=== PATIENT | male | born 1995 | race Caucasian/White ===

== ENCOUNTER 2016-11-02 10:20 | Emergency (ER) | payer SELFPAY ==
[2016-11-02 10:33] VITALS: BP 133/72
--- NOTE | 2016-11-02 10:48 | UC ---
Back Pain HPI - HPI Summary HPI Summary: Patient injured his back on 10/31/16. He is here for follow up. states he is feeling better, but twisting and bending still causes pain. - History of Current Complaint Chief Complaint: UCBackPain Stated Complaint: FOLLOW UP BACK INJURY Time Seen by Provider: 11/02/16 10:28 Hx Obtained From: Patient Onset/Duration: Sudden Onset, Lasting Days Timing: Constant Severity Initially: Severe Severity Currently: Moderate Back Pain: Is Diffuse, Radiates To - legs Character: Spasmodic Aggravating: Movement Alleviating: Rest Related History: Occupational Injury - Allergies/Home Medications Allergies/Adverse Reactions: Allergies Allergy/AdvReac Type Severity Reaction Status Date / Time Cefaclor [From [facility]] Allergy Intermediate Hives Verified 11/02/16 10:33 PMH/Surg Hx/FS Hx/Imm Hx Previously Healthy: Yes Other History Of: Negative For: Anticoagulant Therapy - Surgical History Surgical History: Yes Surgery Procedure, Year, and Place: hernia repair as a baby - Family History Known Family History: Positive: Respiratory Disease - Social History Alcohol Use: None Substance Use Type: None Smoking Status (MU): Current Every Day Smoker Type: Smokeless Tobacco Amount Used/How Often: 1/2 can per day Length of Time of Smoking/Using Tobacco: started at age 16 Have You Smoked in the Last Year: Yes Review of Systems Skin: Negative Eyes: Negative ENT: Negative Respiratory: Negative Cardiovascular: Negative Gastrointestinal: Negative Genitourinary: Negative Motor: Negative Neurovascular: Negative Musculoskeletal: Arthralgia, Decreased ROM, Myalgia Neurological: Negative Psychological: Negative All Other Systems Reviewed And Are Negative: Yes Physical Exam Triage Information Reviewed: Yes Appearance: Well-Appearing, Well-Nourished, Pain Distress Vital Signs: Initial Vital Signs Temp 97.9 F 11/02/16 10:22 Pulse 62 11/02/16 10:22 Resp 14 11/02/16 10:22 BP 133/72 11/02/16 10:22 Pulse Ox 99 11/02/16 10:22 Vital Signs Reviewed: Yes Eye Exam: Normal ENT: Positive: Hearing grossly normal, Pharynx normal Dental Exam: Normal Neck exam: Normal Neck: Positive: Supple, Nontender, No Lymphadenopathy Respiratory Exam: Normal Respiratory: Positive: Chest non-tender, Lungs clear, Normal breath sounds Cardiovascular Exam: Normal Cardiovascular: Positive: RRR, No Murmur, Pulses Normal Abdominal Exam: Normal Abdomen Description: Positive: Nontender, No Organomegaly, Soft Bowel Sounds: Positive: Present Musculoskeletal Exam: Normal Musculoskeletal: Positive: No Edema, Strength Limited @, ROM Limited @ - in FLX , EXT and rotation of the spine Neurological Exam: Normal Neurological: Positive: Alert, Muscle Tone Normal Psychological Exam: Normal Skin Exam: Normal Back Pain Course/Dx - Course Course Of Treatment: hx obtained, exam performed, meds reviewed, ROM assessed, PT referral given, work restrictions applied, will need to follow up for full clearance. - Differential Dx/Diagnosis Differential Diagnosis/HQI/PQRI: Fracture, Herniated Disc, Strain, Sprain Provider Diagnoses: DJD. lumbar back pain Discharge - Discharge Plan Condition: Stable Disposition: HOME Patient Education Materials: Degenerative Disc Disease (ED) Referrals: No Primary Care Phys,NOPCP [Primary Care Provider] - Additional Instructions: 1. i have given you a referral to PT. 2. You may return to work with restrictions. follow up with PT to regain full function.
== END 2016-11-02 10:54 | disposition home or self-care (01) ==
LOC: UCCORT 10:20
DX: M54.5 Low back pain (principal); M51.36 Other intervertebral disc degeneration, lumbar region; Z88.1 Allergy status to other antibiotic agents; F17.210 Nicotine dependence, cigarettes, uncomplicated
CPT/HCPCS: 99211; G0463

== ENCOUNTER 2018-11-28 14:35 | Emergency (ER) | payer SELFPAY ==
[2018-11-28 14:55] VITALS: BP 138/79
--- NOTE | 2018-11-28 15:42 | UC ---
Eye Complaint HPI - HPI Summary HPI Summary: Sudden L eye blurriness assoc. w/ gardner and referred R eye pain. denies any other neuro deficits. +smoker. - History of Current Complaint Chief Complaint: UCDizziness Stated Complaint: LEFT EYE BLURRY, HEADACHE Time Seen by Provider: 11/28/18 15:06 Hx Obtained From: Patient Pain Intensity: 6 - Allergies/Home Medications Allergies/Adverse Reactions: Allergies Allergy/AdvReac Type Severity Reaction Status Date / Time cefaclor [From [facility]] Allergy Intermediate Hives Verified 11/28/18 14:55 PMH/Surg Hx/FS Hx/Imm Hx Previously Healthy: Yes Respiratory History: Asthma Other History Of: Negative For: Anticoagulant Therapy - Surgical History Surgical History: Yes Surgery Procedure, Year, and Place: hernia repair as a baby - Family History Known Family History: Positive: Respiratory Disease - Social History Alcohol Use: None Substance Use Type: None Smoking Status (MU): Light Every Day Tobacco Smoker Type: Cigarettes, Smokeless Tobacco Amount Used/How Often: 1/2 can per day Length of Time of Smoking/Using Tobacco: started at age 16 Have You Smoked in the Last Year: Yes Household Exposure Type: Cigarettes Review of Systems All Other Systems Reviewed And Are Negative: Yes Constitutional: Positive: Negative Eyes: Positive: Blurred Vision - L, Photophobia - L, Other - R eye pain. Pain w / eye movement. denies vision loss. Respiratory: Positive: Negative Cardiovascular: Positive: Negative Neurological: Positive: Headache Physical Exam Triage Information Reviewed: Yes Appearance: Obese Vital Signs: Initial Vital Signs Temp 95.3 F 11/28/18 14:46 Pulse 71 11/28/18 14:46 Resp 17 11/28/18 14:46 BP 138/79 11/28/18 14:46 Pulse Ox 98 11/28/18 14:46 Vital Signs Reviewed: Yes Eyes: Positive: Conjunctiva Clear, Other: - PERRLA, L EOM assoc. w/ pain in L eye but has referred pain to R eye when EOM induced. no eyelid invovlement. sclera white bilat. L eye blurriness , unable to accomodate. Neck: Positive: Supple Respiratory Exam: Normal Cardiovascular Exam: Normal Neurological: Positive: Alert, Other: - current GARDNER w/ worsening pain when L eye is made to focus. OTHERWISE rest of cranial nerves grossly intact. Psychological: Positive: Normal Response To Family Skin: Negative: Rashes Eye Complaint Course/Dx - Course Course Of Treatment: sudden L eye vision impairment notably in the [place] field assoc. w /GARDNER that worsens when he tries to focus L eye. Pain is referred to R eye although no R eye blurriness. No other symptoms. Although this could very well be a retinal detachment there is also concern for a cerebral source or vascular cause. He does have risk factors : obesity, smoker, self reported high blood pressure which is untreated. I recommended ambulance and discussed risks of not going via ambulance like worsening condition. They have chosen to drive, his mother driving. - Differential Dx/Diagnosis Differential Diagnosis/HQI/PQRI: Detached Retina, Uveitis, Other Provider Diagnosis: Vision changes Discharge - Sign-Out/Discharge Documenting (check all that apply): Patient Departure All imaging exams completed and their final reports reviewed: No Studies - Discharge Plan Condition: Good Disposition: HOME Patient Education Materials: Blurred Vision (ED) Referrals: No Primary Care Phys,NOPCP [Primary Care Provider] - Additional Instructions: I strongly recommend you go to the Emergency Room. You have chosen to drive and we discussed risks. - Billing Disposition and Condition Condition: GOOD Disposition: Home
== END 2018-11-28 15:45 | disposition home or self-care (01) ==
LOC: UCEAST 14:35
DX: H53.9 Unspecified visual disturbance (principal); J45.909 Unspecified asthma, uncomplicated; F17.210 Nicotine dependence, cigarettes, uncomplicated
CPT/HCPCS: 99212; G0463

== ENCOUNTER 2018-11-28 15:59 | Emergency (ER) | payer SELFPAY ==
[2018-11-28 16:16] VITALS: BP 165/103
== END 2018-11-28 17:50 | disposition left against medical advice (07) ==
LOC: ED 15:59
DX: H53.8 Other visual disturbances (principal); Z53.21 Procedure and treatment not carried out due to patient leaving prior to being seen by health care provider

== ENCOUNTER 2019-03-28 08:30 | Emergency (ER) | payer SELFPAY ==
[2019-03-28 08:52] VITALS: BP 152/99
--- NOTE | 2019-03-28 09:14 | ED ---
Throat Pain/Nasal Congestion - HPI Summary HPI Summary: 23 yr old male with the complaint of runny nose, sore throat, coughing and right ear pain. Onset of symptoms 4 days ago with ear pain, and about 10 days with the cough and cold symptoms. He denies fever and chills. He has no other complaints. He needs a note for work as well. His only allergy is to cefaclor. He states that he takes amoxicillin with no issues at all. - History of Current Complaint Chief Complaint: UCGeneralIllness Time Seen by Provider: 03/28/19 08:55 - Allergies/Home Medications Allergies/Adverse Reactions: Allergies Allergy/AdvReac Type Severity Reaction Status Date / Time cefaclor [From [facility]] Allergy Intermediate Hives Verified 03/28/19 08:52 PMH/Surg Hx/FS Hx/Imm Hx Endocrine/Hematology History: Denies: Hx Anticoagulant Therapy Respiratory History: Reports: Hx Asthma - Surgical History Surgery Procedure, Year, and Place: hernia repair as a baby Infectious Disease History: No Infectious Disease History: Denies: Traveled Outside the [place] in Last 30 Days - Family History Known Family History: Positive: Respiratory Disease - Social History Alcohol Use: None Substance Use Type: Reports: None Smoking Status (MU): Light Every Day Tobacco Smoker Type: Cigarettes, Smokeless Tobacco Amount Used/How Often: 1/2 can per day Length of Time of Smoking/Using Tobacco: started at age 16 Have You Smoked in the Last Year: Yes Review of Systems Constitutional: Negative Positive: Sore Throat, Ear Ache, Nasal Discharge Positive: Cough All Other Systems Reviewed And Are Negative: Yes Physical Exam Triage Information Reviewed: Yes Vital Signs On Initial Exam: Initial Vitals Temp Pulse Resp BP Pulse Ox 97.3 F 77 20 152/99 96 03/28/19 08:47 03/28/19 08:47 03/28/19 08:47 03/28/19 08:47 03/28/19 08:47 Vital Signs Reviewed: Yes Appearance: Positive: Well-Appearing, No Pain Distress Skin: Positive: Warm, Skin Color Reflects Adequate Perfusion Head/Face: Positive: Normal Head/Face Inspection Eyes: Positive: EOMI ENT: Positive: Nasal congestion, TM red - right with erythema Dental: Positive: Percussion Tenderness @ Neck: Positive: Nontender Respiratory/Lung Sounds: Positive: Clear to Auscultation, Breath Sounds Present Cardiovascular: Positive: RRR. Negative: Murmur Abdomen Description: Negative: Distended Musculoskeletal: Positive: Strength/ROM Intact Neurological: Positive: Sensory/Motor Intact, Alert, Oriented to Person Place, Time, CN Intact II-III, Normal Gait, Speech Normal Psychiatric: Positive: Normal Diagnostics - Vital Signs Vital Signs Temp Pulse Resp BP Pulse Ox 03/28/19 08:47 97.3 F 77 20 152/99 96 - Laboratory Lab Statement: Any lab studies that have been ordered have been reviewed, and results considered in the medical decision making process. EENT Course/Dx - Course Course Of Treatment: 23yr old with right otitis media, and URI symptoms. Amox presribed as he states he has no problem with it in the past. - Diagnoses Provider Diagnoses: Otitis media Discharge ED - Sign-Out/Discharge Documenting (check all that apply): Patient Departure All imaging exams completed and their final reports reviewed: No Studies - Discharge Plan Condition: Good Disposition: HOME Prescriptions: Amoxicillin PO (*) [Amoxicillin 500 MG CAP*] 500 mg PO TID #30 cap Patient Education Materials: Ear Infection (ED), Hypertension (ED) Forms: *Work Release Referrals: No Primary Care Phys,NOPCP [Primary Care Provider] - [facility] [Outside] - 2 Days - Billing Disposition and Condition Condition: GOOD Disposition: Home
== END 2019-03-28 09:15 | disposition home or self-care (01) ==
LOC: UCCORT 08:30
DX: H66.91 Otitis media, unspecified, right ear (principal); J02.9 Acute pharyngitis, unspecified; J45.909 Unspecified asthma, uncomplicated; R05 Cough; J34.89 Other specified disorders of nose and nasal sinuses; F17.210 Nicotine dependence, cigarettes, uncomplicated; Z88.1 Allergy status to other antibiotic agents
CPT/HCPCS: 99212; G0463

== ENCOUNTER 2019-05-16 08:59 | Emergency (ER) | payer SELFPAY ==
[2019-05-16 09:16] VITALS: BP 142/86
--- NOTE | 2019-05-16 09:29 | UC ---
General HPI - HPI Summary HPI Summary: RN notes - Sneezing "I thought it was allergies" and cough last night. Intermittent nausea without vomiting since waking up this morning at 0445. After coughing at about 0730, had ten minute episode of headache associated with left eye "not a total blur out ... kind of blurring", and "felt like my left hand wasn't there" while looking at small parts. While driving here, head "hurt a little" and left arm "weakness. Similar previous episode about a month ago that he went to [place] urgent care, was sent to the ED, and he left without being seen. Asypmtomatic at time of triage. Reviewed parts counter associate. This am approx 7:30 was at work, sudden onset L blurry vision, L frontal parietal h/a, L arm / hand dyskinesia. Occurred s/p sneezing. Sx lasted apprx 10 min, resolved spontaneously. No recent fever / chills. No ear pain. Mild cough, no sob /cp / palpitations. No GI issues. No rash. + hx similar end of the summer (he clarifies, longer than 1 mo ago), sx on and off x approx 1 1/2 days. - History of Current Complaint Chief Complaint: UCHeadache Stated Complaint: VOMITTING,GARDNER,LEFT EYE BLURRY,LEFT ARM NUMB Time Seen by Provider: 05/16/19 09:28 Hx Obtained From: Patient Pain Intensity: 0 - Allergy/Home Medications Allergies/Adverse Reactions: Allergies Allergy/AdvReac Type Severity Reaction Status Date / Time cefaclor [From [facility]] Allergy Intermediate Hives Verified 05/16/19 09:06 PMH/Surg Hx/FS Hx/Imm Hx Previously Healthy: Yes Other History Of: Negative For: Anticoagulant Therapy - Surgical History Surgical History: Yes Surgery Procedure, Year, and Place: hernia repair as a baby - Family History Known Family History: Positive: Respiratory Disease, Other - stroke, dm, ca - Social History Alcohol Use: None Substance Use Type: None Smoking Status (MU): Heavy Every Day Tobacco Smoker Type: Smokeless Tobacco Amount Used/How Often: 1/2 can per day Length of Time of Smoking/Using Tobacco: Since Age 16 Have You Smoked in the Last Year: Yes Household Exposure Type: Cigarettes Review of Systems All Other Systems Reviewed And Are Negative: Yes Constitutional: Positive: Negative - see hpi Skin: Positive: Negative Eyes: Positive: Other - see hpi ENT: Positive: Other - see hpi Respiratory: Positive: Other - see hpi Cardiovascular: Positive: Negative Gastrointestinal: Positive: Negative Genitourinary: Positive: Negative Motor: Positive: Other - see hpi Neurovascular: Positive: Other - see hpi Musculoskeletal: Positive: Other: - see hpi Neurological: Positive: Other - see hpi Psychological: Positive: Negative Is Patient Immunocompromised?: No Physical Exam Triage Information Reviewed: Yes Appearance: Well-Appearing, Well-Nourished Vital Signs: Initial Vital Signs Temp 97 F 05/16/19 09:03 Pulse 95 05/16/19 09:03 Resp 17 05/16/19 09:03 BP 142/86 05/16/19 09:03 Pulse Ox 100 05/16/19 09:03 Vital Signs Reviewed: Yes Eye Exam: Other - see neuro ENT: Positive: Pharynx normal, TM dull, Uvula midline Neck exam: Normal Neck: Positive: Supple, Nontender, No Lymphadenopathy, Other: - no car bruits noted Respiratory Exam: Normal Respiratory: Positive: Chest non-tender, Lungs clear, Normal breath sounds, No respiratory distress, No accessory muscle use Cardiovascular Exam: Normal Cardiovascular: Positive: RRR, No Murmur, Pulses Normal, Brisk Capillary Refill Abdominal Exam: Normal Abdomen Description: Positive: Nontender Musculoskeletal Exam: Normal Musculoskeletal: Positive: Strength Intact, ROM Intact Neurological Exam: Normal, Other - CN 1 - 12 (including + smell + alcohol) Gait steady. Sharpened rhomberg bilat d/c'd by examiner at 15 sec Distal strength + 5/5 + distal LT present Psychological Exam: Normal Skin Exam: Normal - no visible or reported rash Course/Dx - Course Course Of Treatment: bp 142/86 Reviewed with pt coa / tx plan. Encourage ED evaluation / tx. He carefully considered this, and will go. But declines EMS, will drive pov. Wishes to go to [place] ED. Currently feels ok. However, sx are concerning, sobeida with hx of similar end of the summer 2018. + fam hx ca and stroke. Called ED, spoke with Paula Anaya [facility]ER - Diagnoses Provider Diagnosis: Headache, Blurred vision, left eye, Weakness Discharge ED - Sign-Out/Discharge Documenting (check all that apply): Patient Departure All imaging exams completed and their final reports reviewed: No Studies - Discharge Plan Condition: Guarded Disposition: HOME-RECOMMEND TO ED Patient Education Materials: Acute Headache (ED), Weakness (ED), Blurred Vision (ED) Referrals: No Primary Care Phys,NOPCP [Primary Care Provider] - Additional Instructions: Please go to the Emergency Department. Stop and call 911 if any problems en route. - Billing Disposition and Condition Condition: GUARDED Disposition: Home-Recommend to ED
== END 2019-05-16 10:01 | disposition home health service (06) ==
LOC: UCCORT 08:59
DX: H53.8 Other visual disturbances (principal); R51 Headache; R53.1 Weakness; R20.0 Anesthesia of skin; G24.9 Dystonia, unspecified; R11.0 Nausea; F17.290 Nicotine dependence, other tobacco product, uncomplicated; Z88.1 Allergy status to other antibiotic agents
CPT/HCPCS: 99212; G0463